=== PATIENT | female | born 1995 | race Caucasian/White ===

== ENCOUNTER 2017-11-30 12:47 | Emergency (ER) | payer OTHER ==
[2017-11-30] MEDS ORDERED: Lidocaine 1% PF 5 ML VIAL ONE (13:17)
[2017-11-30] MEDS ORDERED: Adacel (T-DAP) 0.5 ML VIAL ONE (13:17)
[2017-11-30] MEDS ORDERED: Bupivacaine 0.5% 10 ML VIAL ONE (13:18)
== END 2017-11-30 14:28 | disposition home or self-care (01) ==
LOC: SCSER 12:47
DX: S61.213A Laceration without foreign body of left middle finger without damage to nail, initial encounter (principal); W26.0XXA Contact with knife, initial encounter
CPT/HCPCS: 12002; 90471; 90715; J2001; J3490